=== PATIENT | female | born 1995 | race Caucasian/White ===

== ENCOUNTER → 2025-04-06 16:11 | Outpatient (REF) | payer OTHER, SELFPAY | LOC: PNTC 16:11 | PROVIDERS: ATTENDING PHYSICIAN Obstetrics & Gynecology | DX: O36.80X0 Pregnancy with inconclusive fetal viability, not applicable or unspecified (principal) | CPT/HCPCS: 76801 ==

== ENCOUNTER → 2025-05-10 13:22 | Outpatient (REF) | payer OTHER, SELFPAY | LOC: PNTC 13:22 | PROVIDERS: ATTENDING PHYSICIAN Obstetrics & Gynecology | DX: Z36.0 Encounter for antenatal screening for chromosomal anomalies (principal); Z36.82 Encounter for antenatal screening for nuchal translucency | CPT/HCPCS: 76801; 76813 ==

== ENCOUNTER → 2025-06-28 14:50 | Outpatient (REF) | payer OTHER, SELFPAY | LOC: PNTC 14:50 | PROVIDERS: ATTENDING PHYSICIAN Obstetrics & Gynecology | DX: Z36.86 Encounter for antenatal screening for cervical length (principal); Z36.3 Encounter for antenatal screening for malformations | CPT/HCPCS: 76805; 76817 ==